=== PATIENT | male | born 1960 | race Caucasian/White ===

== ENCOUNTER 2019-10-10 14:04 | Inpatient (IN) ==
[2019-10-10] MEDS ORDERED: ASPIRIN 325 MG TABLET PO STA (14:24)
[2019-10-10] MEDS ORDERED: ADENOSINE 6 MG/2 ML VIAL IV STA (14:24)
[2019-10-10] MEDS ORDERED: DILTIAZEM 25 MG/5 ML VIAL IV ONE ×2 (14:39→14:56)
[2019-10-10 14:45] LABS: Basophils # 0.1 10*3/uL (0.0-0.2); Basophils % 0.6 % (0.0-0.8); Eosinophils # 0.3 10*3/uL (0.0-0.87); Eosinophils % 4.3 % (0.00-10.9); Hemoglobin 14.1 GM/DL (14.0-18.0); Immature Granulocytes % 1.5 %; Immature Granulocytes Absolute 0.12 #; Lymphocytes # 1.1 10*3/uL (1.4-4.0); Lymphocytes % 14.3 % (21.2-54.2); Mean Corpuscular Volume 97.1 FL (87-102); Monocytes % 8.8 % (1.7-12.7); Neutrophils % 70.5 % (38.7-73.9); Platelet Count 324 T/CUMM (130-400); Red Blood Count 4.53 MC/CUMM (3.8-5.5); Red Cell Distribution Width 14.4 % (9.3-17.3); White Blood Count 7.8 T/CUMM (4-12)
[2019-10-10 14:55] LABS: INR 1.1; PT Patient Result 11.4 SECS (9.6-12.2)
[2019-10-10] MEDS ORDERED: METOPROLOL TARTRATE 5 MG/5 ML VIAL IV ONE ×2 (15:00→17:15)
[2019-10-10] MEDS ORDERED: DILTIAZEM 50 MG/10 ML VIAL IV STA ×2 (15:04→15:45)
[2019-10-10 15:10] LABS: Albumin 3.7 G/DL (3.4-5.0); Bilirubin,Total 0.4 MG/DL (0.2-1.0); Calcium 8.9 MG/DL (8.5-10.1); Thyroid Stimulating Hormone 0.658 uIU/ml (0.358-3.74); Total Protein 6.8 G/DL (6.4-8.3)
[2019-10-10] MEDS ORDERED: ACETAMINOPHEN 325 MG TABLET PO PRN (16:14)
[2019-10-10] MEDS ORDERED: NICOTINE 21 MG/24 HR PATCH TRANSDERM PRN (16:14)
[2019-10-10] MEDS ORDERED: BISACODYL 5 MG TABLET PO PRN (16:14)
[2019-10-10] MEDS ORDERED: ONDANSETRON 4 MG/2 ML VIAL IV PRN (16:14)
[2019-10-10] MEDS ORDERED: DOCUSATE SODIUM 100 MG CAPSULE PO PRN (16:14)
[2019-10-10] MEDS ORDERED: ENOXAPARIN 40 MG/0.4 ML SYRINGE SUBCUT SCH (16:30)
[2019-10-10] MEDS: dilTIAZem Drip 125 MG/125 ML PREMIX IV SCH ×2 (16:38→20:15)
[2019-10-10] MEDS ORDERED: ADENOSINE 6 MG/2 ML VIAL IV ONE (16:39)
[2019-10-10] MEDS ORDERED: DILTIAZEM 50 MG/10 ML VIAL IV ONE ×2 (16:40)
[2019-10-10] MEDS ORDERED: CYANOCOBALAMIN 1000 MCG/1 ML VIAL IM SCH (17:26)
[2019-10-10] MEDS ORDERED: DEXTROSE 50% 25 GM/50 ML VIAL IV PRN (17:26)
[2019-10-10 17:49] LABS: Apearance,Urine CLEAR (Clear); Bilirubin,Urine Negative (Negative); Blood, Urine Negative (Negative); Glucose,Urine (UA) >=500 mg/dL (Negative); Ketones,Urine Negative (Negative); Nitrite,Urine Negative (Negative); Protein,Urine Negative; RBC,Urine 2 /HPF (0-4); Squamous Epithelial Cell,Urine Occasional /HPF (0-10); Urine Color Yellow (Yellow); Urine Specific Gravity 1.026 (1.001-1.035); WBC,Urine <1 /HPF (0-6)
[2019-10-10] MEDS: ENOXAPARIN 150 MG/ML SYRINGE SUBCUT SCH (17:58)
[2019-10-10] MEDS: PANTOPRAZOLE 40 MG TABLET PO SCH (18:01)
[2019-10-10] MEDS: DIGOXIN 0.5 MG/2 ML AMP IV SCH ×2 (18:25→20:12)
[2019-10-10 18:41] LABS: Barbiturates Screen,Urine Negative (Negative); Benzodiazepines Screen,Urine Negative (Negative); Cannabinoid Screen,Urine Negative (Negative); Opiate Screen,Urine Negative (Negative); Phencyclidine Screen,Urine Negative (Negative)
[2019-10-10] MEDS: LUBIPROSTONE 24 MCG CAPSULE PO SCH (20:12)
[2019-10-10] MEDS: INSULIN REGULAR 100 UNIT/ML SUBCUT SCH (20:25)
[2019-10-10] MEDS: diphenhydrAMINE CAP 50 MG CAPSULE PO PRN (20:40)
[2019-10-10] MEDS: SODIUM CHLORIDE 0.9% 1,000 ML IV SCH (22:05)
[2019-10-11] MEDS: dilTIAZem Drip 125 MG/125 ML PREMIX IV SCH (02:57)
[2019-10-11 04:29] LABS: Basophils # 0.1 10*3/uL (0.0-0.2); Eosinophils # 0.3 10*3/uL (0.0-0.87); Eosinophils % 4.1 % (0.00-10.9); Hematocrit 44.5 VOL% (42.0-52.0); Hemoglobin 14.1 GM/DL (14.0-18.0); Immature Granulocytes % 2.1 %; Immature Granulocytes Absolute 0.15 #; Lymphocytes # 1.2 10*3/uL (1.4-4.0); Lymphocytes % 16.1 % (21.2-54.2); Mean Corpuscular HGB Conc 31.7 GM/DL (32-36); Mean Corpuscular Volume 96.7 FL (87-102); Mean Platelet Volume 10.1 FL (9.6-12.0); Monocytes % 9.1 % (1.7-12.7); Neutrophils % 67.6 % (38.7-73.9); Platelet Count 296 T/CUMM (130-400); Red Cell Distribution Width 14.4 % (9.3-17.3); White Blood Count 7.2 T/CUMM (4-12)
[2019-10-11 04:50] LABS: Albumin 3.1 G/DL (3.4-5.0); Bilirubin,Total 0.5 MG/DL (0.2-1.0); Calcium 8.4 MG/DL (8.5-10.1); Osmolality,Calculated 282.4 MOS/KG (273-304); Total Protein 6.7 G/DL (6.4-8.3)
[2019-10-11] MEDS: ENOXAPARIN 150 MG/ML SYRINGE SUBCUT SCH ×2 (06:09→16:47)
[2019-10-11] MEDS: INSULIN REGULAR 100 UNIT/ML SUBCUT SCH ×4 (07:56→20:27)
[2019-10-11] MEDS ORDERED: AMIODARONE INJ 150 MG in DEXTROSE 5% 100 ML IV ONE (08:27)
[2019-10-11] MEDS ORDERED: AMIODARONE INJ 450 MG in DEXTROSE 5% 241 ML IV SCH (08:30)
[2019-10-11] MEDS: PANTOPRAZOLE 40 MG TABLET PO SCH (08:48)
[2019-10-11] MEDS: CITALOPRAM 20 MG TABLET PO SCH (08:48)
[2019-10-11] MEDS: LUBIPROSTONE 24 MCG CAPSULE PO SCH ×2 (08:48→22:53)
[2019-10-11] MEDS: SIMVASTATIN 20 MG TABLET PO SCH (08:49)
[2019-10-11] MEDS: FENOFIBRATE 160 MG TABLET PO SCH (08:49)
[2019-10-11] MEDS: SODIUM CHLORIDE 0.9% 1,000 ML IV SCH ×3 (09:13→22:56)
[2019-10-11] MEDS: METOPROLOL TARTRATE 25 MG TABLET PO SCH ×2 (09:22→22:53)
[2019-10-11] MEDS: NICOTINE 21 MG/24 HR PATCH TRANSDERM PRN (13:04)
[2019-10-11] MEDS: AMIODARONE INJ 450 MG in DEXTROSE 5% 241 ML IV SCH (16:42)
[2019-10-11] MEDS: diphenhydrAMINE CAP 50 MG CAPSULE PO PRN (22:56)
[2019-10-12] MEDS: SODIUM CHLORIDE 0.9% 1,000 ML IV SCH ×3 (01:10→20:54)
[2019-10-12] MEDS: ENOXAPARIN 150 MG/ML SYRINGE SUBCUT SCH (05:16)
[2019-10-12 05:21] LABS: Basophils % 0.5 % (0.0-0.8); Eosinophils # 0.2 10*3/uL (0.0-0.87); Eosinophils % 2.3 % (0.00-10.9); Hematocrit 44.3 VOL% (42.0-52.0); Hemoglobin 14.1 GM/DL (14.0-18.0); Immature Granulocytes % 1.1 %; Immature Granulocytes Absolute 0.09 #; Lymphocytes # 1.1 10*3/uL (1.4-4.0); Lymphocytes % 13.4 % (21.2-54.2); Mean Corpuscular HGB Conc 31.8 GM/DL (32-36); Mean Corpuscular Volume 96.3 FL (87-102); Mean Platelet Volume 10.3 FL (9.6-12.0); Monocytes % 9.2 % (1.7-12.7); Neutrophils % 73.5 % (38.7-73.9); Platelet Count 319 T/CUMM (130-400); Red Cell Distribution Width 14.2 % (9.3-17.3); White Blood Count 7.8 T/CUMM (4-12)
[2019-10-12] MEDS: AMIODARONE INJ 450 MG in DEXTROSE 5% 241 ML IV SCH (05:33)
[2019-10-12 05:40] LABS: Albumin 3.3 G/DL (3.4-5.0); Bilirubin,Total 0.4 MG/DL (0.2-1.0); Calcium 8.1 MG/DL (8.5-10.1); Osmolality,Calculated 278.5 MOS/KG (273-304)
[2019-10-12] MEDS: NICOTINE 21 MG/24 HR PATCH TRANSDERM PRN (07:47)
[2019-10-12] MEDS: INSULIN REGULAR 100 UNIT/ML SUBCUT SCH ×4 (07:52→20:53)
[2019-10-12] MEDS: CITALOPRAM 20 MG TABLET PO SCH (08:43)
[2019-10-12] MEDS: FENOFIBRATE 160 MG TABLET PO SCH (08:43)
[2019-10-12] MEDS: LUBIPROSTONE 24 MCG CAPSULE PO SCH ×2 (08:43→20:50)
[2019-10-12] MEDS: SIMVASTATIN 20 MG TABLET PO SCH (08:43)
[2019-10-12] MEDS: PANTOPRAZOLE 40 MG TABLET PO SCH (08:43)
[2019-10-12] MEDS: METOPROLOL TARTRATE 50 MG TABLET PO SCH ×2 (08:48→20:50)
[2019-10-12] MEDS ORDERED: PROPOFOL 200 MG/20 ML VIAL IV ONE (12:13)
[2019-10-12] MEDS ORDERED: LIDOCAINE 2% 5 ML VIAL ONE (12:13)
[2019-10-12] MEDS ORDERED: PHENYLEPHRINE 1 MG/10 ML SYRINGE IV ONE (12:13)
[2019-10-12] MEDS: APIXABAN 5 MG TABLET PO SCH ×2 (12:36→20:49)
[2019-10-12] MEDS: diphenhydrAMINE CAP 50 MG CAPSULE PO PRN (20:48)
[2019-10-12] MEDS ORDERED: ZALEPLON 5 MG CAPSULE PO PRN (21:52)
[2019-10-13] MEDS: AMIODARONE INJ 450 MG in DEXTROSE 5% 241 ML IV SCH (00:23)
[2019-10-13] MEDS: SODIUM CHLORIDE 0.9% 1,000 ML IV SCH (04:57)
[2019-10-13 05:48] LABS: Basophils # 0.1 10*3/uL (0.0-0.2); Basophils % 0.5 % (0.0-0.8); Eosinophils % 0.4 % (0.00-10.9); Hemoglobin 14.5 GM/DL (14.0-18.0); Immature Granulocytes % 1.5 %; Immature Granulocytes Absolute 0.16 #; Lymphocytes # 0.9 10*3/uL (1.4-4.0); Mean Corpuscular HGB Conc 31.5 GM/DL (32-36); Mean Corpuscular Volume 98.1 FL (87-102); Mean Platelet Volume 10.6 FL (9.6-12.0); Monocytes % 8.5 % (1.7-12.7); Neutrophils % 81.1 % (38.7-73.9); Platelet Count 319 T/CUMM (130-400); Red Blood Count 4.69 MC/CUMM (3.8-5.5); Red Cell Distribution Width 14.5 % (9.3-17.3); White Blood Count 10.9 T/CUMM (4-12)
[2019-10-13] MEDS: INSULIN REGULAR 100 UNIT/ML SUBCUT SCH ×2 (08:48→11:59)
[2019-10-13] MEDS ORDERED: METOPROLOL TARTRATE 25 MG TABLET PO SCH (08:56)
[2019-10-13] MEDS ORDERED: AMIODARONE 200 MG TABLET PO SCH (09:00)
[2019-10-13] MEDS: LUBIPROSTONE 24 MCG CAPSULE PO SCH (09:03)
[2019-10-13] MEDS: SIMVASTATIN 20 MG TABLET PO SCH (09:03)
[2019-10-13] MEDS: APIXABAN 5 MG TABLET PO SCH (09:03)
[2019-10-13] MEDS: CITALOPRAM 20 MG TABLET PO SCH (09:03)
[2019-10-13] MEDS: PANTOPRAZOLE 40 MG TABLET PO SCH (09:03)
[2019-10-13] MEDS: FENOFIBRATE 160 MG TABLET PO SCH (09:03)
[2019-10-13 09:42] LABS: Calcium 8.2 MG/DL (8.5-10.1)
[2019-10-13 09:43] LABS: Albumin 3.6 G/DL (3.4-5.0); Bilirubin,Total 0.64 MG/DL (0.2-1.0); Osmolality,Calculated 286.5 MOS/KG (273-304); Total Protein 7.5 G/DL (6.4-8.3)
[2019-10-13] MEDS ORDERED: amLODIPine 5 MG TABLET PO SCH (11:30)
[2019-10-13 12:33] VITALS: BP 133/72
== END 2019-10-13 12:34 | disposition home or self-care (01) | DRG 310 ==
LOC: N.ED 14:04 → SUATTDRO 16:14 → N.EDINP 16:14 → N.TELES 16:40
PROVIDERS: ADMIT Internal Medicine Cardiovascular Disease; ATTEND Internal Medicine Nephrology

== ENCOUNTER 2019-11-05 12:58 | Inpatient (IN) ==
[2019-11-05 13:23] LABS: Basophils # 0.1 10*3/uL (0.0-0.2); Basophils % 0.7 % (0.0-0.8); Eosinophils # 0.3 10*3/uL (0.0-0.87); Eosinophils % 3.7 % (0.00-10.9); Hematocrit 47.9 VOL% (42.0-52.0); Hemoglobin 15.1 GM/DL (14.0-18.0); Immature Granulocytes % 1.3 %; Immature Granulocytes Absolute 0.09 #; Lymphocytes # 1.1 10*3/uL (1.4-4.0); Lymphocytes % 16.4 % (21.2-54.2); Mean Corpuscular HGB Conc 31.5 GM/DL (32-36); Mean Corpuscular Volume 97.2 FL (87-102); Mean Platelet Volume 9.8 FL (9.6-12.0); Monocytes % 9.4 % (1.7-12.7); Neutrophils % 68.5 % (38.7-73.9); Platelet Count 337 T/CUMM (130-400); Red Blood Count 4.93 MC/CUMM (3.8-5.5); White Blood Count 6.8 T/CUMM (4-12)
[2019-11-05 13:47] LABS: PT Patient Result 10.7 SECS (9.6-12.2); Partial Thromboplastin Time 29.8 SECS (20.8-36.0)
[2019-11-05 13:54] LABS: Alanine Aminotransferase 27 U/L (16-61); Albumin 3.8 G/DL (3.4-5.0); Alkaline Phosphatase 71 U/L (45-117); Aspartate Amino Transferase 15 U/L (0-37); Bilirubin,Total < 0.39 MG/DL (0.2-1.0); Blood Urea Nitrogen 14 MG/DL (7-18); Calcium 8.8 MG/DL (8.5-10.1); Estimated Glom Filtration Rate 119 ML/MIN; Glucose 175 MG/DL (74-106); Osmolality,Calculated 283.4 MOS/KG (273-304)
[2019-11-05] MEDS ORDERED: ZALEPLON 5 MG CAPSULE PO PRN (14:36)
[2019-11-05] MEDS ORDERED: MAGNESIUM SULF RIDER 2 GM in PREMIX 1 EACH IV PRN (14:36)
[2019-11-05] MEDS ORDERED: MAGNESIUM SULF RIDER 4 GM in PREMIX 1 EACH IV PRN (14:36)
[2019-11-05] MEDS ORDERED: ONDANSETRON 4 MG/2 ML VIAL IV PRN (14:36)
[2019-11-05] MEDS ORDERED: PROMETHAZINE 25 MG TABLET PO PRN (14:36)
[2019-11-05] MEDS ORDERED: ACETAMINOPHEN 325 MG TABLET PO PRN (14:36)
[2019-11-05] MEDS ORDERED: DOCUSATE SODIUM 100 MG CAPSULE PO PRN (14:36)
[2019-11-05] MEDS ORDERED: guaiFENesin/DM ER 600-30 MG TABLET PO PRN (14:36)
[2019-11-05] MEDS ORDERED: POTASSIUM CHLORIDE 20 MEQ TABLET PO PRN (14:36)
[2019-11-05] MEDS ORDERED: LACTULOSE 20 GM/30 ML UDCUP PO PRN (14:36)
[2019-11-05] MEDS ORDERED: diphenhydrAMINE CAP 25 MG CAPSULE PO PRN (14:36)
[2019-11-05] MEDS ORDERED: hydrALAZINE 20 MG/1 ML VIAL IV PRN (15:52)
[2019-11-05] MEDS: INSULIN REGULAR 100 UNIT/ML SUBCUT SCH ×2 (17:15→20:17)
[2019-11-05] MEDS: NICOTINE 21 MG/24 HR PATCH TRANSDERM SCH (20:17)
[2019-11-05] MEDS: ENOXAPARIN 40 MG/0.4 ML SYRINGE SUBCUT SCH (20:17)
[2019-11-05] MEDS: LUBIPROSTONE 24 MCG CAPSULE PO SCH (20:17)
[2019-11-06] MEDS ORDERED: ATROPINE 1 MG/10 ML SYRINGE IV PRN (04:26)
[2019-11-06] MEDS ORDERED: EPINEPHrine 1 MG/10 ML SYRINGE IV PRN (04:30)
[2019-11-06 05:36] LABS: Basophils # 0.1 10*3/uL (0.0-0.2); Basophils % 0.9 % (0.0-0.8); Eosinophils # 0.3 10*3/uL (0.0-0.87); Eosinophils % 3.8 % (0.00-10.9); Hematocrit 48.7 VOL% (42.0-52.0); Hemoglobin 15.3 GM/DL (14.0-18.0); Immature Granulocytes % 1.3 %; Lymphocytes # 1.5 10*3/uL (1.4-4.0); Lymphocytes % 20.2 % (21.2-54.2); Mean Corpuscular HGB Conc 31.4 GM/DL (32-36); Mean Corpuscular Volume 97.4 FL (87-102); Mean Platelet Volume 10.4 FL (9.6-12.0); Monocytes % 10.6 % (1.7-12.7); Neutrophils % 63.2 % (38.7-73.9); Platelet Count 299 T/CUMM (130-400); Red Cell Distribution Width 14.2 % (9.3-17.3); White Blood Count 7.4 T/CUMM (4-12)
[2019-11-06 06:20] LABS: Alanine Aminotransferase 26 U/L (16-61); Albumin 3.4 G/DL (3.4-5.0); Alkaline Phosphatase 70 U/L (45-117); Aspartate Amino Transferase 19 U/L (0-37); Bilirubin,Total < 0.39 MG/DL (0.2-1.0); Blood Urea Nitrogen 14 MG/DL (7-18); Calcium 8.4 MG/DL (8.5-10.1); Estimated Glom Filtration Rate 134 ML/MIN; Glucose 99 MG/DL (74-106); Osmolality,Calculated 277.5 MOS/KG (273-304); Total Protein 7.2 G/DL (6.4-8.3); Troponin I < 0.015 NG/ML (0.00-0.045)
[2019-11-06] MEDS: INSULIN REGULAR 100 UNIT/ML SUBCUT SCH ×4 (08:12→21:35)
[2019-11-06] MEDS ORDERED: NON-FORMULARY MEDICATION (Dulaglutide [Trulicity] 0.75 MG) SUBCUT SCH (09:00)
[2019-11-06] MEDS ORDERED: ceFAZolin 1,000 MG in SYRINGE 1 EACH IV ONE (12:00)
[2019-11-06] MEDS ORDERED: ceFAZolin 1,000 MG VIAL IRRIG ONE (12:00)
[2019-11-06] MEDS ORDERED: DEXTROSE 5% NACL 0.45% 1,000 ML IV SCH (12:00)
[2019-11-06] MEDS ORDERED: DIAZEPAM 5 MG TABLET PO ONE (12:00)
[2019-11-06] MEDS ORDERED: diphenhydrAMINE CAP 25 MG CAPSULE PO ONE (12:00)
[2019-11-06] MEDS ORDERED: HEPARIN/NACL 0.9% 2 UNITS/ML 500 ML IV ONE (13:42)
[2019-11-06] MEDS ORDERED: LIDOCAINE 1% 20 ML VIAL ONE (13:42)
[2019-11-06] MEDS ORDERED: LIDOCAINE 1%/EPI INJ 20 ML VIAL ONE (13:43)
[2019-11-06] MEDS ORDERED: fentaNYL 100 MCG/2 ML VIAL ONE (14:01)
[2019-11-06] MEDS ORDERED: MIDAZOLAM 2 MG/2 ML VIAL ONE (14:02)
[2019-11-06] MEDS: NICOTINE 21 MG/24 HR PATCH TRANSDERM SCH (16:46)
[2019-11-06] MEDS: CITALOPRAM 20 MG TABLET PO SCH (16:47)
[2019-11-06] MEDS: LUBIPROSTONE 24 MCG CAPSULE PO SCH ×2 (16:47→21:33)
[2019-11-06] MEDS: AMIODARONE 200 MG TABLET PO SCH (16:47)
[2019-11-06] MEDS: FENOFIBRATE 160 MG TABLET PO SCH (16:48)
[2019-11-06] MEDS: SIMVASTATIN 20 MG TABLET PO SCH (16:48)
[2019-11-06] MEDS: PANTOPRAZOLE 40 MG TABLET PO SCH (16:48)
[2019-11-06] MEDS: amLODIPine 5 MG TABLET PO SCH (16:48)
[2019-11-06] MEDS: NON-FORMULARY MEDICATION (Dapagliflozin [Farxiga] 10 MG) PO SCH (16:51)
[2019-11-06] MEDS: [UNRECOGNIZED DRUG - OTHER] PO SCH (16:52)
[2019-11-06] MEDS ORDERED: NICOTINE 21 MG/24 HR PATCH TRANSDERM SCH ×2 (18:20→21:00)
[2019-11-06] MEDS: ALBUTEROL/IPRATROPIUM 3 ML NEB RESP TX SCH (20:14)
[2019-11-06] MEDS: ENOXAPARIN 40 MG/0.4 ML SYRINGE SUBCUT SCH (21:35)
[2019-11-06] MEDS: METOPROLOL TARTRATE 25 MG TABLET PO SCH (21:35)
[2019-11-07] MEDS: ALBUTEROL/IPRATROPIUM 3 ML NEB RESP TX SCH ×3 (00:35→11:26)
[2019-11-07 05:05] LABS: Basophils % 0.5 % (0.0-0.8); Eosinophils # 0.2 10*3/uL (0.0-0.87); Eosinophils % 2.6 % (0.00-10.9); Hematocrit 46.9 VOL% (42.0-52.0); Hemoglobin 14.7 GM/DL (14.0-18.0); Immature Granulocytes % 0.6 %; Immature Granulocytes Absolute 0.05 #; Lymphocytes # 0.9 10*3/uL (1.4-4.0); Lymphocytes % 11.8 % (21.2-54.2); Mean Corpuscular HGB Conc 31.3 GM/DL (32-36); Mean Corpuscular Volume 96.9 FL (87-102); Neutrophils % 74.5 % (38.7-73.9); Platelet Count 306 T/CUMM (130-400); Red Blood Count 4.84 MC/CUMM (3.8-5.5); Red Cell Distribution Width 13.8 % (9.3-17.3); White Blood Count 7.8 T/CUMM (4-12)
[2019-11-07 05:33] LABS: Calcium 8.3 MG/DL (8.5-10.1); Osmolality,Calculated 276.7 MOS/KG (273-304)
[2019-11-07 08:05] VITALS: BP 121/86
[2019-11-07] MEDS: NICOTINE 21 MG/24 HR PATCH TRANSDERM SCH (08:37)
[2019-11-07] MEDS: AMIODARONE 200 MG TABLET PO SCH (08:38)
[2019-11-07] MEDS: amLODIPine 5 MG TABLET PO SCH (08:38)
[2019-11-07] MEDS: METOPROLOL TARTRATE 25 MG TABLET PO SCH (08:38)
[2019-11-07] MEDS: CITALOPRAM 20 MG TABLET PO SCH (08:38)
[2019-11-07] MEDS: PANTOPRAZOLE 40 MG TABLET PO SCH (08:38)
[2019-11-07] MEDS: FENOFIBRATE 160 MG TABLET PO SCH (08:39)
[2019-11-07] MEDS: LUBIPROSTONE 24 MCG CAPSULE PO SCH (08:39)
[2019-11-07] MEDS: SIMVASTATIN 20 MG TABLET PO SCH (08:39)
[2019-11-07] MEDS: INSULIN REGULAR 100 UNIT/ML SUBCUT SCH ×2 (08:39→12:46)
[2019-11-07] MEDS: NON-FORMULARY MEDICATION (Dapagliflozin [Farxiga] 10 MG) PO SCH (08:41)
[2019-11-07] MEDS: [UNRECOGNIZED DRUG - OTHER] PO SCH (08:41)
[2019-11-07] MEDS ORDERED: DEXTROSE 50% 25 GM/50 ML VIAL IV PRN (09:44)
[2019-11-07] MEDS ORDERED: GLUCAGON 1 MG VIAL IM PRN (09:44)
[2019-11-08] MEDS ORDERED: SOLRIAMFETOL 150 MG PO SCH (09:00)
== END 2019-11-07 12:40 | disposition home or self-care (01) | DRG 244 ==
LOC: N.ED 12:58 → N.EDINP 14:36 → N.TELEN 15:49 → N.CC 16:36 → N.TELES 11-06 15:48
PROVIDERS: ADMIT Internal Medicine Interventional Cardiology; ATTEND Internal Medicine Interventional Cardiology